=== PATIENT | male | born 1955 | race Caucasian/White ===

== ENCOUNTER 2020-12-12 11:09 | Emergency (ER) | payer BC ==
[2020-12-12] MEDS ORDERED: Lidocaine 1% (PF) 30 ML VIAL ONE (12:03)
[2020-12-12] MEDS ORDERED: Ketorolac Tromethamine 30 MG/ML VIAL ONE (12:03)
[2020-12-12] MEDS ORDERED: Boostrix 0.5 ML (Tdap) VIAL ONE (12:04)
[2020-12-12] MEDS ORDERED: Morphine 2 MG/ML VIAL ONE (12:04)
[2020-12-12] MEDS ORDERED: CEFAZOLIN 1 GM VIAL ONE (12:04)
== END 2020-12-12 15:00 | disposition home or self-care (01) ==
LOC: CSHERS 11:09
DX: S68.621A Partial traumatic transphalangeal amputation of left index finger, initial encounter (principal); X58.XXXA Exposure to other specified factors, initial encounter
CPT/HCPCS: 26951; 90471; 90715; 96372; J0690; J1885; J2001; J2270

== ENCOUNTER 2022-05-25 09:56 | Emergency (ER) | payer BC ==
[2022-05-25 10:30] LABS: #Basophils 0.1 10x3/uL (0.0-0.2); #Eosinphils 0.2 10x3/uL (0.0-0.5); #Monocytes 0.5 10x3/uL (0.0-1.1); %Basophils 0.5 % (0.0-2.0); %Eosinophils 2.2 % (0.0-6.0); %Lymphocytes 9.2 % (18.0-47.0); %Monocytes 5.2 % (0.0-10.0); %Neutrophils 82.5 % (40.0-75.0); Hemoglobin 16.9 g/dL (13.5-17.5); Mean Corpuscular HGB CONC 32.6 g/dL (32.0-36.0); Mean Corpuscular Hemoglobin 29.2 pg (27.0-33.0); Mean Corpuscular Volume 89.6 fl (81.2-95.1); Mean Platelet Volume 9.9 fl (7.4-10.4); Platelet Count 195 10x3/uL (150-450); RBC Distribution Width 13.8 % (11.5-14.5); Red Blood Cell (RBC) Count 5.78 10x6/uL (4.32-5.72); White Blood Cell (WBC) Count 9.7 10x3/uL (3.5-10.5)
[2022-05-25] MEDS ORDERED: Apixaban 5 MG TAB ONE (10:37)
[2022-05-25 10:42] LABS: ALT (SGPT) 36 U/L (8-55); AST (SGOT) 25 U/L (5-34); Albumin 4.6 g/dL (3.4-4.8); Alkaline Phosphatase 104 U/L (40-110); Anion Gap 17 mmol/L (10-20); BUN (Urea Nitrogen) 22 mg/dL (8.4-25.7); Bilirubin, Total 0.9 mg/dL (0.2-1.2); CK (CPK) 70 U/L (30-200); Calc. Creatinine Clearance 0 mL/min (70-130); Calcium 9.8 mg/dL (7.8-10.44); Carbon Dioxide 24 mmol/L (23-31); Chloride 101 mmol/L (98-107); Estimated GFR 70; Globulin 2.7 g/dL (2.4-3.5); Glucose 193 mg/dL (80-115); Lipase 22 U/L (8-78); Protein, Total 7.3 g/dL (5.8-8.1); Sodium 137 mmol/L (136-145)
[2022-05-25 11:04] LABS: CKMB 6.6 ng/mL (0-6.6)
[2022-05-25 13:59] LABS: Troponin I 0.041 ng/mL (< 0.028)
== END 2022-05-25 14:59 | disposition home or self-care (01) ==
LOC: CSHERS 09:56
DX: I48.91 Unspecified atrial fibrillation (principal); I10 Essential (primary) hypertension; E78.5 Hyperlipidemia, unspecified; E11.9 Type 2 diabetes mellitus without complications
CPT/HCPCS: 71045; 80053; 82550; 82553; 83690; 83880; 84443; 84484; 85025; 93005

== ENCOUNTER 2023-04-05 07:53 | Day surgery (SDC) | payer MEDICARE, OTHER ==
[2023-04-04 11:45] VITALS: BMI 30.8
[2023-04-05] MEDS ORDERED: PROPOFOL 40 ML ONE (11:38)
[2023-04-05] MEDS ORDERED: PROPOFOL 20 ML ONE (11:58)
== END 2023-04-05 12:53 | disposition home or self-care (01) ==
LOC: CSHSDC 07:53
PROVIDERS: ATTEND Internal Medicine Gastroenterology
PROC: 0DBL8ZZ Excision of Transverse Colon, Via Natural or Artificial Opening Endoscopic (ICD-10-PCS; principal; 2023-04-05)
DX: Z12.11 Encounter for screening for malignant neoplasm of colon (principal); D12.3 Benign neoplasm of transverse colon; K64.8 Other hemorrhoids; K62.89 Other specified diseases of anus and rectum; K57.30 Diverticulosis of large intestine without perforation or abscess without bleeding; Z86.010 Personal history of colon polyps; E11.9 Type 2 diabetes mellitus without complications; I10 Essential (primary) hypertension; I48.91 Unspecified atrial fibrillation; E78.5 Hyperlipidemia, unspecified; E66.9 Obesity, unspecified; Z68.30 Body mass index [BMI] 30.0-30.9, adult; Z79.01 Long term (current) use of anticoagulants; Z88.1 Allergy status to other antibiotic agents; Z79.82 Long term (current) use of aspirin; Z79.84 Long term (current) use of oral hypoglycemic drugs; Z79.899 Other long term (current) drug therapy
CPT/HCPCS: 88305; J2704

== ENCOUNTER 2023-11-20 13:54 | Outpatient (CLI) | payer MEDICARE, OTHER | END 2023-11-20 13:55 | disposition home or self-care (01) | LOC: CSHCP 13:54 | PROVIDERS: ATTEND Family Medicine | DX: R06.09 Other forms of dyspnea (principal); J44.9 Chronic obstructive pulmonary disease, unspecified | CPT/HCPCS: 94060; 94664; 94726; 94729; 94760 ==